=== PATIENT | female | born 1990 | race African-American/Black ===

== ENCOUNTER 2019-01-17 15:53 | Emergency (ER) | payer OTHER ==
[~2019-01-17] VITALS: Ht 165.1 cm; Wt 68.0 kg
[~2019-01-17 15:53] MED LIST: BIRTH CONTROL PILLS; FLEXERIL PO; NORCO 5-325 TA1 EACH PO
[2019-01-17] MEDS ORDERED: EFFEXOR XR75 MG PO (16:01)
[2019-01-17] MEDS ORDERED: NORCO 5-325 TA1 EACH PO (18:04)
[2019-01-17] MEDS ORDERED: IBUPROFEN 600600 M1 PO (18:04)
[2019-01-17] MEDS ORDERED: SENNA-DOCUSATE1 EAC1 PO (18:04)
[2019-01-17] MEDS ORDERED: NORFLEX100 MG PO (18:05)
[2019-01-17 20:02] VITALS: BP 140/93
== END 2019-01-17 20:03 | disposition home or self-care (01) ==
LOC: ER 15:53
DX: S62.621A Displaced fracture of middle phalanx of left index finger, initial encounter for closed fracture (principal); S92.001A Unspecified fracture of right calcaneus, initial encounter for closed fracture; S01.81XA Laceration without foreign body of other part of head, initial encounter; M25.562 Pain in left knee; F17.210 Nicotine dependence, cigarettes, uncomplicated; V59.49XA Driver of pick-up truck or van injured in collision with other motor vehicles in traffic accident, initial encounter; Y93.89 Activity, other specified; Y92.89 Other specified places as the place of occurrence of the external cause; Y99.8 Other external cause status